=== PATIENT | female | born 1990 | race Caucasian/White ===

== ENCOUNTER → 2017-06-10 | Outpatient (CLI) | payer OTHER ==
[~2017-06-10] MED LIST: MOTRIN 800800 MG/TAB PO; PRENATAL1 TA1
== END ==
LOC: COL.RAD 08:58
DX: N97.9 Female infertility, unspecified (principal)
CPT/HCPCS: Q9967

== ENCOUNTER 2020-01-05 09:34 | Inpatient (IN) | payer OTHER ==
[~2020-01-05] VITALS: Ht 160 cm; Wt 69.1 kg
[2020-01-05] VITALS (10 sets, daily range): BP systolic 106–143; BP diastolic 63–84; PULSE 57–73; TEMP 98–98.8
--- NOTE | 2020-01-05 09:35 | NUR ---
924- This RN, Leena Mann RN, and Geno Sherwood RN called to Patient Admissions entrance after report that patient delivered infant in vehicle en route to hospital. Upon arrival, RN notes has been delivered and mother is holding on chest in vehicle. Patient reports at 0918. Infant and mother covered in warm blankets, cord clamped by this RN. 927- Dr. Reyes notified via telephone and requested on unit to assess patient upon transfer to [facility]. Patient transferred to stretcher. Three [place] sized clots noted upon patient standing to transfer. Placenta not yet delivered. 932- Patient to LR 3 via stretcher. VS obtained. Dr. Reyes at bedside. 941- Spontaneous delivery of placenta, Pitocin given IM per physician order at 942. Fundus firm at umbilicus. Perineum noted intact. 45- IV started in RH and saline locked. Vaginal bleeding WNL. Pericare given and ice pack applied. Consents explained and signed. Assessment completed. Patient updated on plan of care, denies questions. Skin to skin with infant.
[2020-01-05 11:32] LABS: HEMATOCRIT 38.6 % (37.0-47.0); HEMOGLOBIN 13.5 g/dl (12.5-16.0); MEAN CELL VOLUME 92 fl (80.0-100.0); MEAN CORPUSCULAR HEMOGLOBIN 32 pg (27.0-31.0); MEAN CORPUSCULAR HGB CONC 35 g/dl (33.0-37.0); MEAN PLATELET VOLUME 11.6 fl (7.4-10.4); PLATELET COUNT 145 K/mm3 (130-400); REDCELL DISTRIBUTION WIDTH-CV 13.1 % (11.5-14.5)
[2020-01-05 12:04] LABS: BAND 13 % (0-10); LYMPHOCYTE 5 % (20.0-51.0); NEUTROPHILS 80 % (42.0-75.2); PLATELET ESTIMATE NORMAL (NORMAL)
--- NOTE | 2020-01-05 15:01 | NUR ---
COVID-19 swab offered and collected per protocol.
[2020-01-06 03:45] VITALS: BP 133/79; PULSE 56; TEMP 98.2
[2020-01-06] MEDS ORDERED: IBU800 M1 PO (08:45)
[2020-01-06 08:53] VITALS: BP 120/64; PULSE 80; TEMP 98
[2020-01-06 09:11] LABS: HEMOGLOBIN 11.6 g/dl (12.5-16.0); MEAN CELL VOLUME 91 fl (80.0-100.0); MEAN CORPUSCULAR HEMOGLOBIN 31 pg (27.0-31.0); MEAN CORPUSCULAR HGB CONC 34 g/dl (33.0-37.0); MEAN PLATELET VOLUME 10.6 fl (7.4-10.4); PLATELET COUNT 141 K/mm3 (130-400); RED BLOOD COUNT 3.75 M/mm3 (4.10-5.30); REDCELL DISTRIBUTION WIDTH-CV 13.2 % (11.5-14.5)
[2020-01-06 09:13] LABS: HEMATOCRIT 34.2 % (37.0-47.0)
--- NOTE | 2020-01-06 10:12 | NUR ---
Initial visit; Parents thanked [employer] Technician for offering congratulations and God's blessings for the of their son. [employer] Technician thanked family for choosing [facility].
[2020-01-06 16:58] VITALS: BP 118/75; PULSE 57; TEMP 98.4
[2020-01-06 21:00] VITALS: BP 117/81; PULSE 70; TEMP 98.1
--- NOTE | 2020-01-07 06:37 | NUR ---
REPORT RECEIVED FROM OFF GOING RN, MARLO Lea. CARE TAKEN OVER BY THIS RN.
[2020-01-07 08:08] VITALS: BP 119/76; PULSE 72; TEMP 98.2
== END 2020-01-07 11:27 | disposition home or self-care (01) | DRG 769 ==
LOC: OB 09:34 → LDR 09:34 → OB 13:52
PROVIDERS: ADMIT Student in an Organized Health Care Education/Training Program
PROC: 10D17ZZ Extraction of Products of Conception, Retained, Via Natural or Artificial Opening (ICD-10-PCS; principal; 2020-01-05)
DX: Z39.0 Encounter for care and examination of mother immediately after delivery (principal)
CPT/HCPCS: J2590

== ENCOUNTER → 2020-01-19 | Outpatient (CLI) | payer OTHER ==
[~2020-01-19] MED LIST changes: +IBU800 M1 PO
--- NOTE | 2020-01-19 13:25 | NUR ---
Pt, Kassi Leary, presents for outpatient consult with two week old baby boy, Gabriel Leary. She is struggling to get Gabriel to latch well, she is being treated for mastitis and now has a low milk supply, and she has a wound on her right nipple. Gabriel was born spontaneously on 01/05/2018 and weighed 6#7.4oz (2930 gms). His discharge weight was documented as 6#0oz (2720 gms). Gabriel weighed 6#5oz at his first appointment on 01/10/20 and 6#12oz on 01/16/20. Today Gabriel's weight is 6#13.4oz (3102 gms). Pt reports Gabriel eats every 3 hours in the daytime but she cannot get him to wake at that interval at [facility], so estimates 7 feeds per 24 hours. He has 4-5 voids and stools daily, the stool observed at this appointment was dark green. Pt reports supplementing Gabriel about 0.5oz formula after BF because of nipple pain and decreased milk supply with mastitis. At this feeding Gabriel latches better to the left breast after this LC advises use of cross cradle hold to help Gabriel get a larger mouthful of breast. The right side has been sore and has the mastitis so pt has been pumping it, collecting only a few gtts to MLs per pumping. She agrees to try latching on the right side, eventually going to football hold so she can manipulate the flat nipple into his mouth deeper. After Gabriel had a gain of 1.2oz (32 gms) from the right and 0.2oz 96gms) from the left. He is supplemented with 1.5oz after . Bases on weight and size Gabriel should be drinking 20-21oz per day. POC: Continue each feeding, supplement ~1.5oz per feeding, pump each feeding. Information about herbal supplements also provided. F/U: By telephone in a week to discuss milk supply, and determine follow up consult. Questions invited and answered.
== END ==
LOC: LAC
DX: Z39.1 Encounter for care and examination of lactating mother (principal); Z71.89 Other specified counseling